=== PATIENT | male | born 1980 | race Caucasian/White ===

== ENCOUNTER 2018-04-02 09:10 | Inpatient (IN) | payer MEDICAID ==
[~2018-04-02] VITALS: Ht 193 cm; Wt 140.9 kg
[2018-04-02] MEDS ORDERED: KETOROLAC TROMETHAMINE 30 MG/ML VIAL IVP ONE (10:00)
[2018-04-02 10:32] LABS: BASOPHILS % (AUTO) 0.3 % (0.0-2.0); HEMATOCRIT 46.9 % (41-53); HEMOGLOBIN 15.7 g/dL (13.5-17.5); LYMPHOCYTES # (AUTO) 1.5 K/uL (1.0-4.8); LYMPHOCYTES % (AUTO) 18.6 % (22.0-44.0); MEAN CORPUSCULAR HEMOGLOBIN 30.1 pg (26.0-34.0); MEAN CORPUSCULAR HGB CONC 33.4 G/dL (31.0-37.0); MEAN CORPUSCULAR VOLUME 90 fL (80-100); MONOCYTES # (AUTO) 0.6 K/uL (0.1-1.0); MONOCYTES % (AUTO) 7.6 % (2.0-9.0); NEUTROPHILS # (AUTO) 5.8 K/uL (1.8-7.7); NEUTROPHILS % (AUTO) 72.5 % (40.0-70.0); PLATELET COUNT (AUTO) 203 K/uL (150-450); RED CELL DISTRIBUTION WIDTH 14.5 % (11.5-14.5)
[2018-04-02 10:42] LABS: ANION GAP 6 mmol/L (8-16); CALCIUM, TOTAL 8.9 mg/dL (8.8-10.5); CARBON DIOXIDE 29 mmol/L (22-29); CHLORIDE 103 mmol/L (98-107); CREATININE 1.02 mg/dL (0.60-1.30); GLOMERULAR FILTR. RATE CALC > 60 mL/min (>60); GLUCOSE,RANDOM 94 mg/dL (70-110); POTASSIUM 4.8 mmol/L (3.5-5.1); SODIUM SERUM 138 mmol/L (136-145); UREA NITROGEN, BLOOD 10 mg/dL (7-18)
[2018-04-02 10:44] LABS: C-REACTIVE PROTEIN QUANT 0.54 mg/dL (0.00-0.30)
[2018-04-02 11:39] LABS: ERYTHROCYTE SEDIMENTATION RATE 11 MM/HR (0-15)
[2018-04-02] MEDS ORDERED: MORPHINE SULFATE 4 MG/ML SYRINGE IVP ONE (12:15)
[2018-04-02] MEDS ORDERED: SODIUM CHLORIDE 0.9% 1,000 ML IV ONE (12:15)
[2018-04-02] MEDS ORDERED: MORPHINE SULFATE 4 MG/ML SYRINGE IVP PRN (12:30)
[2018-04-02] MEDS ORDERED: ACETAMINOPHEN 325 MG TABLET PO PRN ×2 (12:30→20:45)
[2018-04-02] MEDS ORDERED: HYDROCODONE/ACETAMINOPHEN 5-325 MG TABLET PO PRN (12:30)
[2018-04-02] MEDS ORDERED: ONDANSETRON HCL 4 MG/2 ML VIAL IVP PRN ×2 (12:30→20:45)
[2018-04-02] MEDS ORDERED: GADOBUTROL 1 MMOL/ML 10 ML VIAL IVP ONE (13:16)
[2018-04-02 15:34] VITALS: BP 101/60
[2018-04-02] MEDS ORDERED: POTASSIUM CHLORIDE 20 MEQ ER TABLET PO PRN (20:45)
[2018-04-02] MEDS ORDERED: MAGNESIUM SULFATE 4 GM/WATER 100 ML IV PRN (20:45)
[2018-04-02] MEDS ORDERED: PANTOPRAZOLE SODIUM 40 MG/VIAL IVP SCH (20:45)
[2018-04-02] MEDS ORDERED: 0.9% SODIUM CHLORIDE 10 ML SYRINGE IVP PRN (20:45)
[2018-04-02] MEDS ORDERED: MAGNESIUM SULFATE 2 GM/WATER 50 ML IV PRN (20:45)
[2018-04-02] MEDS ORDERED: MAGNESIUM OXIDE 400 MG TABLET PO PRN (20:45)
[2018-04-02] MEDS ORDERED: POTASSIUM CHL 10 MEQ/WATER 50 ML IV PRN (20:45)
[2018-04-02] MEDS ORDERED: ZOLPIDEM TARTRATE 5 MG TABLET PO PRN (20:45)
[2018-04-02 20:49] VITALS: BP 113/64
[2018-04-02] MEDS ORDERED: VANCOMYCIN HCL 1 GM/D5% WATER 200 ML IV ONE (21:00)
[2018-04-02] MEDS ORDERED: PIPERACILLIN/TAZO 3.375 GM/D5W 50 ML IV ONE (21:00)
[2018-04-02] MEDS ORDERED: SODIUM CHLORIDE 0.9% 500 ML IV ONE (21:11)
[2018-04-02] MEDS: DOCUSATE SODIUM 100 MG CAPSULE PO SCH (21:15)
[2018-04-02] MEDS: OxyCODONE HCL/ACETAMINOPHEN 5-325 MG TABLET PO PRN (21:28)
[2018-04-02] MEDS: CefTRIAXone SODIUM 2 GM in DEXTROSE 5%-WATER 20 ML IV SCH (22:20)
[2018-04-02] MEDS: HEPARIN SODIUM,PORCINE 5,000 UNITS/ML VIAL SQ SCH (23:21)
[2018-04-02 23:57] VITALS: BP 110/61
[2018-04-03] MEDS: OxyCODONE HCL/ACETAMINOPHEN 5-325 MG TABLET PO PRN ×2 (04:44→12:19)
[2018-04-03 05:58] VITALS: BP 110/73
[2018-04-03 06:05] LABS: BASOPHILS % (AUTO) 0.1 % (0.0-2.0); EOSINOPHILS % (AUTO) 1.9 % (1.0-6.0); HEMATOCRIT 43.9 % (41-53); HEMOGLOBIN 14.7 g/dL (13.5-17.5); LYMPHOCYTES # (AUTO) 2.3 K/uL (1.0-4.8); LYMPHOCYTES % (AUTO) 35.8 % (22.0-44.0); MEAN CORPUSCULAR HGB CONC 33.4 G/dL (31.0-37.0); MEAN CORPUSCULAR VOLUME 90 fL (80-100); MONOCYTES # (AUTO) 0.6 K/uL (0.1-1.0); MONOCYTES % (AUTO) 8.7 % (2.0-9.0); NEUTROPHILS # (AUTO) 3.4 K/uL (1.8-7.7); NEUTROPHILS % (AUTO) 53.5 % (40.0-70.0); PLATELET COUNT (AUTO) 194 K/uL (150-450); RED BLOOD CELL COUNT(AUTO) 4.89 MIL/uL (4.50-5.90); RED CELL DISTRIBUTION WIDTH 14.4 % (11.5-14.5)
[2018-04-03 06:36] LABS: ANION GAP 7 mmol/L (8-16); CALCIUM, TOTAL 8.6 mg/dL (8.8-10.5); CARBON DIOXIDE 28 mmol/L (22-29); CHLORIDE 103 mmol/L (98-107); CREATININE 0.94 mg/dL (0.60-1.30); GLOMERULAR FILTR. RATE CALC > 60 mL/min (>60); GLUCOSE,RANDOM 83 mg/dL (70-110); POTASSIUM 4.3 mmol/L (3.5-5.1); SODIUM SERUM 138 mmol/L (136-145); UREA NITROGEN, BLOOD 12 mg/dL (7-18)
[2018-04-03 08:10] VITALS: BP 107/68
[2018-04-03] MEDS: DOCUSATE SODIUM 100 MG CAPSULE PO SCH ×2 (08:32→20:23)
[2018-04-03] MEDS: PANTOPRAZOLE SODIUM 40 MG DR TABLET PO SCH (08:32)
[2018-04-03] MEDS: HEPARIN SODIUM,PORCINE 5,000 UNITS/ML VIAL SQ SCH ×2 (08:32→16:47)
[2018-04-03] MEDS: MORPHINE SULFATE 2 MG/ML SYRINGE IVP PRN ×3 (08:37→20:23)
[2018-04-03 11:40] VITALS: BP 113/69
[2018-04-03] MEDS ORDERED: IBUP-2070 PO (11:47)
[2018-04-03 15:44] VITALS: BP 117/69
[2018-04-03 19:18] VITALS: BP 105/57
[2018-04-03] MEDS: CefTRIAXone SODIUM 2 GM in DEXTROSE 5%-WATER 20 ML IV SCH (20:24)
[2018-04-03 23:01] VITALS: BP 132/69
[2018-04-04] MEDS: MORPHINE SULFATE 2 MG/ML SYRINGE IVP PRN (00:29)
[2018-04-04] MEDS: HEPARIN SODIUM,PORCINE 5,000 UNITS/ML VIAL SQ SCH ×2 (00:29→09:03)
[2018-04-04 04:30] VITALS: BP 136/87
[2018-04-04 07:37] VITALS: BP_SYST 129; BP_SYST 189; BP_DIAS 74
[2018-04-04] MEDS: DOCUSATE SODIUM 100 MG CAPSULE PO SCH (09:03)
[2018-04-04] MEDS: PANTOPRAZOLE SODIUM 40 MG DR TABLET PO SCH (09:03)
[2018-04-04] MEDS: OxyCODONE HCL/ACETAMINOPHEN 5-325 MG TABLET PO PRN ×2 (09:07→14:37)
== END 2018-04-04 15:11 | disposition home or self-care (01) | DRG 351 ==
LOC: EMS 09:11 → 4E 12:19 → 6N 04-04 11:58
PROVIDERS: ADMIT Internal Medicine; ATTEND Internal Medicine
DX: M76.9 Unspecified enthesopathy, lower limb, excluding foot (principal); Z87.891 Personal history of nicotine dependence
CPT/HCPCS: 73503; 73723; 83735; 85651; 86140; 87040; 96361; 96374; 96375; 99285; A9585; C9113; J0696; J1644; J1885; J2270; J7030; J7040; J7060